=== PATIENT | female | born 1980 | race Hispanic/Latino ===

== ENCOUNTER → 2017-12-01 | Outpatient (CLI) | payer BC, OTHER | END | disposition home or self-care (01) | LOC: RAH 16:00 | PROVIDERS: ATTEND Obstetrics & Gynecology | DX: Z12.31 Encounter for screening mammogram for malignant neoplasm of breast (principal) | CPT/HCPCS: 77067 ==

== ENCOUNTER → 2024-02-09 | Outpatient (CLI) | payer BC | END | disposition home or self-care (01) | LOC: RAH 10:02 | PROVIDERS: ATTEND Obstetrics & Gynecology | DX: Z12.31 Encounter for screening mammogram for malignant neoplasm of breast (principal); R92.343 Mammographic extreme density, bilateral breasts | CPT/HCPCS: 77067 ==

== ENCOUNTER → 2025-03-01 | Outpatient (CLI) | payer BC ==
--- NOTE | 2025-03-02 13:00 | HMCIMG ---
BILATERAL BREAST ULTRASOUND: CLINICAL HISTORY: Follow-up for mammogram from 02/10/2025 due to moderately heterogeneously nodular dense breasts. Finding: Real-time examination of the both breasts demonstrates moderately heterogeneous echotexture throughout both the breasts. There is no mass identified. There is fibrocystic changes right breast at 12:00 there is a small cyst within 0.6 x 0.5 x 0.6 cm. Left breast has a cyst at 5:00 measuring 0.8 x 0.5 x 0.5 cm. This is of this cyst also at 5:00 measuring 0.6 x 0.3 x 0.5 cm. The left axillary region there is a benign-appearing lymph node measuring 1.3 x 1.3 x 0.6 cm. The second lymph node measuring 1.3 x 0.4 x 1.0 cm. IMPRESSION: There is fibrocystic changes. No mass identified. I would recommend annual mammography with tomography with bilateral breast sonogram. FINAL ASSESSMENT: ACR: BI-RAD- 2. Benign: Also a negative assessment; finding(s) benign abnormalities. Management: Routine mammography screening. Likelihood of Cancer: Essentially 0% likelihood of malignancy.
== END | disposition home or self-care (01) ==
LOC: RAH 15:16
PROVIDERS: ATTEND Obstetrics & Gynecology
DX: N60.12 Diffuse cystic mastopathy of left breast (principal); N60.11 Diffuse cystic mastopathy of right breast; R92.333 Mammographic heterogeneous density, bilateral breasts